=== PATIENT | female | born 1965 | race Hispanic/Latino ===

== ENCOUNTER → 2023-07-31 | Outpatient (CLI) | payer BC | END | disposition home or self-care (01) | LOC: RAH 14:08 | PROVIDERS: ATTEND Obstetrics & Gynecology | DX: Z12.31 Encounter for screening mammogram for malignant neoplasm of breast (principal) | CPT/HCPCS: 77067 ==

== ENCOUNTER → 2024-10-22 | Outpatient (CLI) | payer BC ==
--- NOTE | 2024-10-23 10:25 | HMCIMG ---
DIGITAL BILATERAL SCREENING MAMMOGRAM Technique: The digital mammographic examination of both breasts in craniocaudal and mediolateral oblique views along with CAD was obtained. History: This is a 59 years year-old female 2, para3 Ab0. Patient has history of 2 breast biopsies on the right it was performed 7 years ago which was benign finding. On the left approximately 6 years ago with benign finding. Patient has no family history of breast cancer. Patient has no complaint Reference:Prior mammogram from 07/31/2023, 07/25/2022, 12/16/2020 are available. Breast composition: Breast composition C: The breasts are heterogeneously dense, which may obscure small masses. Finding: The digital mammographic examination of both breasts in craniocaudal and mediolateral oblique view along with CAD demonstrates both breasts to be moderately heterogeneously dense due to fibroglandular stromal elements. There is a biopsy marker is seen in the left breast near the retromammary fat region inferiorly. There is also on the marker externally on the right upper quadrant of the right breast. The right breast in CC view there is a density near the retromammary fat which is not well seen on the MLO view. There is no evidence of any dendritic mass, cluster microcalcification or architectural distortion. The retromammary fat appears to be normal. IMPRESSION: Right breast has a density only seen on the cc view but not well seen on MLO view. I would recommend a coned-down compression view of the right breast and bilateral breast sonogram for further evaluation.. FINAL ASSESSMENT: ACR: BI-RAD -0. Incomplete: need additional imaging evaluation. Management: Recall for additional imaging and/or comparison with prior examination(s). Likelihood of Cancer: N/A NOTE: IF A WORK-UP OF THIS PATIENT LEADS TO A BIOPSY, PLEASE FORWARD A COPY OF THE PATHOLOGY REPORT TO OUR OFFICE REQUIRED BY [employer] DECEMBER 25, 1993. A NEGATIVE MAMMOGRAM SHOULD NOT PRECLUDE BIOPSY OF A CLINICALLY PALPABLE SUSPICIOUS MASS, 10% OF BREAST CANCERS ARE MAMMOGRAPHICALLY OCCULT. THIS MAMMOGRAPHY FACILITY IS FULLY ACCREDITED BY THE [employer]OD AND [employer]UG [employer]MIN[employer]ATION (FDA). THANK YOU FOR THIS REFERRAL.
== END | disposition home or self-care (01) ==
LOC: RAH 07:46
PROVIDERS: ATTEND Family Medicine Sports Medicine
DX: Z12.31 Encounter for screening mammogram for malignant neoplasm of breast (principal); R92.333 Mammographic heterogeneous density, bilateral breasts
CPT/HCPCS: 77067